=== PATIENT | male | born 1970 | race Caucasian/White ===

== ENCOUNTER 2019-07-13 08:05 | Day surgery (SDC) | payer BC ==
[2019-07-11 14:30] VITALS: BMI 33.0
[2019-07-13] MEDS ORDERED: PROPOFOL 20 ML ONE ×4 (08:23→09:05)
[2019-07-13 10:06] VITALS: BP 128/78
[2019-07-13 10:09] VITALS: PULSE 67; TEMP 97.9
== END 2019-07-13 10:12 | disposition home or self-care (01) ==
LOC: FASU-ENDO 08:05
PROVIDERS: ATTEND Internal Medicine Gastroenterology
PROC: 0DJD8ZZ Inspection of Lower Intestinal Tract, Via Natural or Artificial Opening Endoscopic (ICD-10-PCS; principal; 2019-07-13 08:55)
DX: Z12.11 Encounter for screening for malignant neoplasm of colon (principal)